=== PATIENT | male | born 1955 | race Caucasian/White ===

== ENCOUNTER 2016-11-05 19:02 | Emergency (ER) | payer OTHER ==
[2016-11-09] MEDS ORDERED: SPIRIVA18 MCG IH (16:16)
[2016-11-09] MEDS ORDERED: SYMBICORT 16010.2 GM IH (16:16)
[2016-11-09] MEDS ORDERED: LEVAQUIN750 MG PO (16:17)
[2016-11-09] MEDS ORDERED: PROAIR HFA8.5 GM IH (16:17)
== END 2016-11-05 23:11 | disposition critical access hospital (66) ==
LOC: ER 19:02
DX: J18.9 Pneumonia, unspecified organism (principal); R09.02 Hypoxemia; F10.20 Alcohol dependence, uncomplicated; E87.1 Hypo-osmolality and hyponatremia; E87.6 Hypokalemia
CPT/HCPCS: 36415; 87502; 96365; 96367; G0480